=== PATIENT | male | born 1985 | race Caucasian/White ===

== ENCOUNTER 2018-04-06 11:06 | Emergency (ER) | payer OTHER ==
[~2018-04-06] VITALS: Ht 175.3 cm; Wt 10.0 kg
[2018-04-06] MEDS ORDERED: MONT5TCH PO (11:10)
[2018-04-06] MEDS ORDERED: QVAR REDIHALE10.6 G1 IH (11:10)
[2018-04-06] MEDS ORDERED: RANI150EL (11:10)
[2018-04-06] MEDS ORDERED: ALBU90OI INH (11:10)
[2018-04-06] MEDS ORDERED: NEOPOLHCSU BOTHEARS (11:43)
== END 2018-04-06 11:55 | disposition home or self-care (01) ==
LOC: ER 11:06
DX: H60.93 Unspecified otitis externa, bilateral (principal); J45.909 Unspecified asthma, uncomplicated; K21.9 Gastro-esophageal reflux disease without esophagitis; Z88.5 Allergy status to narcotic agent
CPT/HCPCS: 99282